=== PATIENT | male | born 2005 | race Caucasian/White ===

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

== ENCOUNTER → 2025-06-17 12:58 | Outpatient (BNVA) | payer OTHER, SELFPAY | PROVIDERS: PCP Nurse Practitioner; Visit Provider Nurse Practitioner | DX: S52.124A Nondisplaced fracture of head of right radius, initial encounter for closed fracture (principal); W17.89XA Other fall from one level to another, initial encounter | CPT/HCPCS: 73080 ==

== ENCOUNTER → 2025-07-22 10:38 | Outpatient (BNVA) | payer OTHER, SELFPAY | PROVIDERS: PCP Nurse Practitioner; Visit Provider Nurse Practitioner | DX: I10 Essential (primary) hypertension (principal) | CPT/HCPCS: 80053; 80061 ==